=== PATIENT | female | born 1990 | race Two or more races ===

== ENCOUNTER 2021-05-27 02:10 | Emergency (ER) | payer MEDICAID ==
[~2021-05-27] VITALS: Ht 165.1 cm; Wt 96.2 kg
--- NOTE | 2021-05-27 02:26 | NUR ---
PT BIBSELF C/O RIGHT SIDED BACK OF EAR PAIN. PT [id number] BREATHING EVENLY AND UNLABORED. PT ATTACHED TO MONITOR AND POX. MD AT BEDSIDE. WILL CONTINUE TO MONITOR
[2021-05-27] MEDS ORDERED: LORATADINE 10 MG TABLET PO SCH (03:00)
[2021-05-27] MEDS ORDERED: methylPREDNISolone SOD SUCC 125 MG/2ML VIAL IV ONE (03:00)
[2021-05-27] MEDS ORDERED: methylPREDNISolone SOD SUCC 125 MG/2ML VIAL ONE (03:02)
[2021-05-27] MEDS ORDERED: LORATADINE 10 MG TABLET ONE (03:03)
[2021-05-27 03:13] LABS: BASOPHILS % (AUTO) 0.6 % (0.0-2.0); EOSINOPHILS % (AUTO) 1.7 % (0.0-6.0); HEMATOCRIT 33 % (33-45); HEMOGLOBIN 10.8 g/dL (11.5-14.8); LYMPHOCYTES # (AUTO) 2.4 K/uL (0.8-4.8); LYMPHOCYTES % (AUTO) 35.6 % (20.0-44.0); MEAN CORPUSCULAR HGB CONC 32 g/dl (31.0-36.0); MEAN CORPUSCULAR VOLUME 82 fL (82-100); MONOCYTES # (AUTO) 0.3 K/uL (0.1-1.30); MONOCYTES % (AUTO) 4.9 % (2.0-12.0); NEUTROPHILS # (AUTO) 3.9 K/uL (1.8-8.9); NEUTROPHILS % (AUTO) 57.2 % (43.0-81.0); PLATELET COUNT (AUTO) 236 K/uL (150-450); RED BLOOD CELL COUNT(AUTO) 4.06 MIL/uL (4.0-5.2); WHITE BLOOD COUNT (AUTO) 6.8 K/uL (4.3-11.0)
[2021-05-27] MEDS ORDERED: IOHEXOL-350 100 ML VIAL IV ONE (03:16)
[2021-05-27] MEDS ORDERED: IV NS 0.9% 250 ML IV ONE (03:17)
[2021-05-27 03:18] LABS: CALCIUM, SERUM 8.7 mg/dL (8.5-10.1); CREATININE 0.8 mg/dL (0.6-1.3); POTASSIUM 3.4 mmol/L (3.5-5.1)
--- NOTE | 2021-05-27 03:56 | NUR ---
back from ct
--- NOTE | 2021-05-27 04:06 | NUR ---
RADIOLOGY ON PHONE WITH
--- NOTE | 2021-05-27 04:27 | NUR ---
Patient discharged to home in stable condition. Written and verbal after care instructions given. Patient verbalizes understanding of instruction.
[2021-05-27 04:29] VITALS: BP 145/80
== END 2021-05-27 04:29 | disposition home or self-care (01) ==
LOC: ER 02:15
DX: H92.01 Otalgia, right ear (principal); M54.81 Occipital neuralgia; Z98.890 Other specified postprocedural states; Z88.6 Allergy status to analgesic agent
CPT/HCPCS: 36415; 70450; 70496; 80048; 85025; 85652; 86140; 96374; 99285; J2930; J7050; Q9967